=== PATIENT | female | born 1965 | race Caucasian/White ===

== ENCOUNTER 2017-04-01 15:07 | Emergency (ER) | payer OTHER ==
[~2017-04-01] VITALS: Ht 165.1 cm; Wt 65.0 kg
[2017-04-01 15:30] VITALS: BP 142/92
== END 2017-04-01 17:20 | disposition home or self-care (01) ==
LOC: ED 15:07
DX: N39.0 Urinary tract infection, site not specified (principal); I10 Essential (primary) hypertension; F32.9 Major depressive disorder, single episode, unspecified